=== PATIENT | male | born 1970 | race Caucasian/White ===

== ENCOUNTER 2017-09-05 09:15 | Outpatient (CLI) | payer OTHER ==
--- NOTE | 2017-09-05 11:47 | XRAY Report ---
DATE OF SERVICE: 09/05/2017 TWO VIEW CHEST: 09/05/2017 COMPARISON: Two view chest of 07/18/2015. INDICATION: Cough. TECHNIQUE: Two views of the chest. FINDINGS: Clear lungs. No pneumothorax or pleural effusion. Mediastinum unremarkable. IMPRESSION: NO EVIDENCE OF ACUTE THORACIC PROCESS. TD: 09/05/2017 12:20 [facility]
== END 2017-09-05 09:16 | disposition home or self-care (01) ==
LOC: DI.S 09:15
PROVIDERS: ATTEND Nurse Practitioner Family
DX: R05 Cough (principal)
CPT/HCPCS: 71046

== ENCOUNTER 2023-10-07 10:44 | Outpatient (CLI) | payer SELFPAY | END 2023-10-07 10:45 | disposition E | LOC: EMS 10:44 | DX: I46.9 Cardiac arrest, cause unspecified (principal) | CPT/HCPCS: A0425; A0428 ==